=== PATIENT | male | born 1970 | race African-American/Black ===

== ENCOUNTER 2018-12-15 07:20 | Day surgery (SDC) | payer OTHER ==
[2018-12-15] MEDS: DICLOFENAC 0.1% 2.5 ML OPH RIGHT EYE (08:11)
[2018-12-15] MEDS: CYCLOPENTOLATE/PHENYLEPH 2 ML OPH RIGHT EYE (08:12)
[2018-12-15] MEDS: TROPICAMIDE 1% 15 ML OPH RIGHT EYE (08:12)
[2018-12-15] MEDS: MOXIFLOXACIN 0.5% 3 ML OPH RIGHT EYE (08:13)
[2018-12-15] MEDS: SOD CHLORIDE 0.9% 1,000 ML IV (08:14)
[2018-12-15] MEDS ORDERED: PROPOFOL 20 ML (11:09)
[2018-12-15] MEDS ORDERED: LIDOCAINE 2% (SDV) 5 ML INJ (11:09)
[2018-12-15] MEDS ORDERED: MIDAZOLAM 1 MG/ML 2 ML INJ (11:10)
[2018-12-15] MEDS ORDERED: FENTAnyl 50 MCG/ML VIAL (11:27)
[2018-12-15] MEDS ORDERED: ACETAMINOPHEN 500 MG TAB PO (11:30)
[2018-12-15] MEDS ORDERED: OXYCODONE/ACETAMINOPHEN (5/325) TAB PO (11:30)
[2018-12-15] MEDS ORDERED: ONDANSETRON 4 MG INJ IV (11:30)
[2018-12-15] MEDS ORDERED: ALBUTEROL 0.083% (NEB) 2.5 MG/3 ML AMP HHN (11:30)
[2018-12-15] MEDS ORDERED: LABETALOL HCL 20MG INJ IV (11:30)
[2018-12-15] MEDS ORDERED: hydrALAzine 20 MG INJ IV (11:30)
[2018-12-15] MEDS ORDERED: DIPHENHYDRAMINE 50 MG INJ IV (11:30)
[2018-12-15] MEDS ORDERED: FENTAnyl 50 MCG/ML VIAL IV (11:30)
[2018-12-15] MEDS ORDERED: ACETAMINOPHEN 325 MG TAB PO (11:30)
[2018-12-15] MEDS: DEXAMETHASONE 4 MG/ML 1 ML INJ (11:45)
[2018-12-15] MEDS: CEFAZOLIN 1 GM INJ (11:45)
[2018-12-15] MEDS: NA HYALURONATE/CHONDROITIN 0.5 ML SYG (11:47)
[2018-12-15] MEDS: CARBACHOL 0.01% 1.5 ML OPH INJ (11:47)
[2018-12-15] MEDS ORDERED: CARBACHOL 0.01% 1.5 ML OPH INJ (12:22)
== END 2018-12-15 13:20 | disposition home or self-care (01) ==
LOC: SDS 07:20
DX: H25.031 Anterior subcapsular polar age-related cataract, right eye (principal); E11.9 Type 2 diabetes mellitus without complications; I10 Essential (primary) hypertension; Z79.82 Long term (current) use of aspirin; Z79.84 Long term (current) use of oral hypoglycemic drugs
CPT/HCPCS: 66984; 82962